=== PATIENT | female | born 1985 | race Caucasian/White ===

== ENCOUNTER 2016-04-13 08:49 | Inpatient (IN) | payer BC ==
[~2016-04-13] VITALS: Ht 167.6 cm; Wt 95.5 kg
[~2016-04-13 08:49] MED LIST: MOTRIN 600600 MG/TAB PO; MYLICON 8080 MG/TAB. PO; PERCOCET 325 MG1 TA2 PO; PRENATAL1 TA1 PO; SLOW FE45 MG PO
[2016-06-08] VITALS (20 sets, daily range): BP systolic 110–148; BP diastolic 49–86; PULSE 78–111; TEMP 98.1–98.8
[2016-06-08] MEDS ORDERED: ZANTAC 150MG T150 MG PO (06:37)
[2016-06-08] MEDS ORDERED: PRENATAL (06:37)
[2016-06-08] MEDS ORDERED: TUMS500 MG (06:38)
[2016-06-08 07:13] LABS: BASO % 0.4 % (0.0-2.0); EOS # 0.1 (0.0-0.7); GRAN # 5.5 (1.4-6.5); GRAN % 67.5 % (42.2-75.2); HEMATOCRIT 35.2 % (37.0-47.0); HEMOGLOBIN 11.8 g/dl (12.5-16.0); LYMPH # 1.7 (1.2-3.4); LYMPH % 20.7 % (20.0-51.0); MEAN CELL VOLUME 94 fl (80.0-100.0); MEAN CORPUSCULAR HEMOGLOBIN 32 pg (27.0-31.0); MEAN CORPUSCULAR HGB CONC 34 g/dl (33.0-37.0); MEAN PLATELET VOLUME 10.8 fl (7.4-10.4); MONO # 0.8 (0.1-0.6); MONO % 9.9 % (1.7-9.3); PLATELET COUNT 263 K/mm3 (130-400); RED BLOOD COUNT 3.73 M/mm3 (4.10-5.30); REDCELL DISTRIBUTION WIDTH-CV 13.2 % (11.5-14.5); WHITE BLOOD COUNT 8.2 K/mm3 (4.8-10.8)
[2016-06-08] MEDS ORDERED: IBU800 M1 PO (08:32)
[2016-06-08] MEDS ORDERED: PERCOCET 325 MG1 TA2 PO (08:33)
[2016-06-09 00:15] VITALS: BP 110/70; PULSE 98; TEMP 98.6
[2016-06-09 04:30] VITALS: BP 116/60; PULSE 101; TEMP 98.4
[2016-06-09 07:52] LABS: BASO % 0.2 % (0.0-2.0); EOS % 0.4 % (0-4.0); GRAN # 6.1 (1.4-6.5); GRAN % 74.6 % (42.2-75.2); LYMPH # 1.3 (1.2-3.4); LYMPH % 15.6 % (20.0-51.0); MEAN CELL VOLUME 97 fl (80.0-100.0); MEAN CORPUSCULAR HGB CONC 33 g/dl (33.0-37.0); MEAN PLATELET VOLUME 9.9 fl (7.4-10.4); MONO # 0.7 (0.1-0.6); MONO % 8.7 % (1.7-9.3); PLATELET COUNT 210 K/mm3 (130-400); RED BLOOD COUNT 3.13 M/mm3 (4.10-5.30); REDCELL DISTRIBUTION WIDTH-CV 13.5 % (11.5-14.5); WHITE BLOOD COUNT 8.2 K/mm3 (4.8-10.8)
[2016-06-09 08:05] LABS: HEMATOCRIT 30.2 % (37.0-47.0); MEAN CORPUSCULAR HEMOGLOBIN 32 pg (27.0-31.0)
[2016-06-09 08:30] VITALS: BP 117/66; PULSE 100; TEMP 97.6
[2016-06-09 22:00] VITALS: BP 114/57; PULSE 97; TEMP 97.3
[2016-06-10 11:00] VITALS: BP 100/70; PULSE 82; TEMP 98.6
== END 2016-06-10 13:00 | disposition home or self-care (01) | DRG 766 ==
LOC: LDRO 08:49 → EDSTATUS 10:29 → OB 06-08 05:49
PROVIDERS: Obstetrics & Gynecology
PROC: 10D00Z1 Extraction of Products of Conception, Low, Open Approach (ICD-10-PCS; principal; 2016-06-08)
PROC: 0DNW0ZZ Release Peritoneum, Open Approach (ICD-10-PCS; 2016-06-08)
DX: O34.211 Maternal care for low transverse scar from previous cesarean delivery (principal); N85.8 Other specified noninflammatory disorders of uterus; O99.62 Diseases of the digestive system complicating childbirth; K66.0 Peritoneal adhesions (postprocedural) (postinfection); Z3A.39 39 weeks gestation of pregnancy; Z37.0 Single live birth
CPT/HCPCS: J0690; J1885; J2270; J2405; J2590; J7120